=== PATIENT | male | born 1930 | race Caucasian/White ===

== ENCOUNTER 2021-04-13 08:32 | Emergency (ER) | payer MEDICARE, MEDICAID | END 2021-04-13 11:36 | disposition home or self-care (01) | LOC: CSHERS 08:32 | DX: Z04.3 Encounter for examination and observation following other accident (principal); E11.9 Type 2 diabetes mellitus without complications; D64.9 Anemia, unspecified; E78.5 Hyperlipidemia, unspecified; I10 Essential (primary) hypertension; K21.9 Gastro-esophageal reflux disease without esophagitis; Z87.891 Personal history of nicotine dependence; Z79.899 Other long term (current) drug therapy; Z79.84 Long term (current) use of oral hypoglycemic drugs; W06.XXXA Fall from bed, initial encounter | CPT/HCPCS: 70450; 72125 ==